=== PATIENT | male | born 1965 | race Caucasian/White ===

== ENCOUNTER 2022-05-13 08:09 | Outpatient (CLI) | payer OTHER, SELFPAY ==
--- NOTE | ~2022-05-13 | XR_ITS ---
XR abdomen/kub 1V 05/13/2022 08:56 INDICATION: Abdominal distention. TECHNIQUE: KUB COMPARISON: 06/28/2017 FINDINGS: Bowel gas pattern is normal. There is no evidence of free air, mass, organomegaly, ascites or obstruction. No abnormal calculi are seen. The bones appear intact. IMPRESSION: 1: No acute abdominal abnormality identified. Reviewed, dictated and finalized at location L. [facility] BARREL DRUM
--- NOTE | ~2022-05-13 | NM_ITS ---
EXAM: NM gastric emptying study DATE: 05/13/2022 12:55 WEIGHTER INDICATION: Abdominal distention. Bloating. TECHNIQUE: A gastric emptying study was performed using the methodology of Radha BATES, et al. J Nucl Med 2007; 48:568-572. The patient was given a meal consisting of 2 scrambled eggs labeled with 0.981 mCi Tc-99m sulfur colloid, 2 slices of toast, two packages of jam, and approximately 120 mL of water . Simultaneous anterior and posterior 1-min images of the abdomen were obtained with the patient supi ne at multiple time points over a total period of 4 hours. The geometric mean of anterior and posteri or views was determined, and the percentage retention was calculated for each time point. COMPARISON: KUB dated 05/13/2022 FINDINGS: Gastric retention of the radiotracer-labeled meal was 65%, 36%, and 4% at the 1-hour, 2-ho ur, and 4-hour time points, respectively. With this technique, apparent rapid gastric emptying is sug gested by <30% gastric retention at 1 hour. Delayed gastric emptying is defined by gastric retention of >90% at 1 hour, >60% retention at 2 hours, or >10% retention at 4 hours. IMPRESSION: 1. Normal gastric emptying. Reviewed, dictated and finalized at location L. HTER IMPRESSION: 1. Normal gastric emptying.
== END 2022-05-13 08:10 | disposition home or self-care (01) ==
PROVIDERS: PCP Family Medicine Adolescent Medicine; Visit Provider Nurse Practitioner Family
DX: R14.0 Abdominal distension (gaseous) (principal)
CPT/HCPCS: 74018; 78264; A9541

== ENCOUNTER 2022-06-02 00:38 | Day surgery (SDC) | payer OTHER, SELFPAY ==
[2022-05-24 10:01] VITALS: BMI 27.9
--- NOTE | 2022-06-01 16:31 | PM.HPGS ---
History of Present Illness History of Present Illness Consent: Risks, benefits, and alternatives have been discussed and questions answered. Patient agrees to proceed with procedure. Chief complaint: hx colon polyps, bowles's esophagus, neoplasm Narrative: Seven Mandujano is a 56 year old male with a history of Bowles's esophagus and also history of polyps. He had an adenomatous polyp removed 5 years ago. Also at that time biopsies actually were negative for Bowles's mucosa. He does however continue to have acid reflux symptoms treated with omeprazole. He has also had a great deal of abdominal bloating. He took Xifaxan once which helped significantly. He finds it difficult to burp or pass gas. Review of Systems Review of Systems: All systems reviewed & are unremarkable except as noted in HPI and below PMFSH Past Medical History Medical History Alopecia Anxiety GERD (gastroesophageal reflux disease) Patient of Dr. Polanco. Upper endoscopy in August 2017 was relatively unremarkable, with by episode showing mild gastritis without intestinal metaplasia. History of Bowles's esophagus No evidence of Bowles on endoscopy in August 2017. History of colon polyps Colonoscopy in August [address] Polanco demonstrated a sigmoid polyp, found to be tubular adenoma. Hypertension Family History Family History Mother Heart disease, Onset Age: 70 Other Acute myocardial infarction Social History Social History Social History: The patient lives in [place]. His primary care provider is Dr. Yoshi Dawson. He designates his father, Ihsan Mandujano, as his surrogate decision maker and he wishes to be a full code. Smoking packs per day: 0.5 Smoking cigarettes per day: 10.0 Years smoked: 35 Smoking pack-years: 17.50 Smoking status: Current every day smoker Tobacco type: cigarettes Second hand tobacco smoke exposure: Yes Additional smoking assessment comments: Used to smoke 2 packs per day. Has smoked for 34 years. Alcohol intake: current Alcohol use details: socially Substance use: never Substance use type: does not use Living arrangements: alone Occupation/Education: occupation Gender identity (if verbalized by the patient): Male Spiritual care concerns: No Agree to blood products: Yes Meds Home Medications and Allergies Home Medications Medication Instructions Recorded Confirmed Type omeprazole 40 mg capsule,delayed See Rx Instructions .Route 09/30/21 05/24/22 Rx release .COMPLEX #90 caps metoprolol tartrate 50 mg tablet 50 mg PO BID #180 tabs 04/15/22 05/24/22 Rx buspirone 7.5 mg tablet See Rx Instructions .Route 04/20/22 05/24/22 Rx .COMPLEX #180 tabs Allergies Allergy/AdvReac Type Severity Reaction Status Date / Time No Known Allergies Allergy Verified 06/02/22 09:01 Exam Const: General: alert Orientation/consciousness: patient oriented x3 Resp: Auscultation: clear to auscultation bilaterally Cardio: Rhythm: regular rhythm GI: GI Palp: Yes Soft to palpation and No Tenderness to palpation present (GI) Neuro: General: patient oriented x3 Assessment and Plan Assessment and plan (1) Bowles's esophagus: Code(s): K22.70 - Bowles's esophagus without dysplasia Status: Acute Assessment and Plan: EGD with possible biopsy or dilatation or cautery. (2) Colon cancer screening: Code(s): Z12.11 - Encounter for screening for malignant neoplasm of colon Status: Acute Assessment and Plan: Colonoscopy with possible biopsy or polypectomy or cautery or injection of substances.
[2022-06-02 09:03] VITALS: BP 130/75; PULSE 57; RESP 18; TEMP 36.1; O2SAT 99; BMI 27.6
[2022-06-02] MEDS: LACTATED RINGERS 1,000 ML 150 ML IV CONT (09:05)
--- NOTE | 2022-06-02 09:33 | WPDANESEPPF ---
Anes - Initial Pre Proc Eval Procedure: Operation Date: 06/02/22 10:00 Proposed Procedures p Esophagogastroduodenoscopy & Screening Colonoscopy - Mauricio Polanco MD Date/Time: 06/02/22 09:33 Surgeon: Mauricio Polanco MD Pre Op Diagnosis: hx colon polyps, bowles's esophagus, neoplasm Patient Data Age: 56 Gender: M Height: 1.8 m Weight: 89.8 kg Last Vital Signs Temp 97.0 F L 06/02/22 09:03 Pulse 57 L 06/02/22 09:03 Resp 18 06/02/22 09:03 BP 130/75 06/02/22 09:03 Pulse Ox 99 06/02/22 09:03 O2 Del Method Room Air 06/02/22 09:03 Allergies Allergy/AdvReac Type Severity Reaction Status Date / Time No Known Allergies Allergy Verified 06/02/22 09:01 Home Medications Medication Instructions Recorded Confirmed Type omeprazole 40 mg capsule,delayed See Rx Instructions .Route 09/30/21 05/24/22 Rx release .COMPLEX #90 caps metoprolol tartrate 50 mg tablet 50 mg PO BID #180 tabs 04/15/22 05/24/22 Rx buspirone 7.5 mg tablet See Rx Instructions .Route 04/20/22 05/24/22 Rx .COMPLEX #180 tabs Patient hx anesthesia problems: none Family hx anesthesia problems: none Results Review: All pre-operative results and documents have been reviewed as part of the pre-operative evaluation. [facility] Past Medical History Medical History Alopecia Anxiety GERD (gastroesophageal reflux disease) Patient of Dr. Polanco. Upper endoscopy in August 2017 was relatively unremarkable, with by episode showing mild gastritis without intestinal metaplasia. History of Bowles's esophagus No evidence of Bowles on endoscopy in August 2017. History of colon polyps Colonoscopy in [place] [address] Polanco demonstrated a sigmoid polyp, found to be tubular adenoma. Hypertension Family History Family History Mother Heart disease, Onset Age: 70 Other Acute myocardial infarction Social History Social History Social History: The patient lives in [place]. His primary care provider is Dr. Yoshi Dawson. He designates his father, Ihsan Mandujano, as his surrogate decision maker and he wishes to be a full code. Smoking packs per day: 0.5 Smoking cigarettes per day: 10.0 Years smoked: 35 Smoking pack-years: 17.50 Smoking status: Current every day smoker Tobacco type: cigarettes Second hand tobacco smoke exposure: Yes Additional smoking assessment comments: Used to smoke 2 packs per day. Has smoked for 34 years. Alcohol intake: current Alcohol use details: socially Substance use: never Substance use type: does not use Living arrangements: alone Occupation/Education: occupation Gender identity (if verbalized by the patient): Male Spiritual care concerns: No Agree to blood products: Yes Anes - Eval Final PreProcedure Day of Procedure 06/02/22 09:33 Patient weight: normal Heart: regular rate and rhythm Lungs: clear to auscultation Airway: Mallampati scale class II Neurological: alert and oriented Last oral intake: >/= 8 hours ASA classification: III Emergent: no Anesthetic plan: proceed Anesthesia type and monitoring: general GIVS and standard monitoring Results Review: All pre-operative results and documents have been reviewed as part of the pre-operative evaluation. Informed Consent: The patient's anesthetic plan and its attendant risks and benefits were discussed with the patient/family/POA. Questions were solicited and answers provided to the satisfaction of the patient/family/POA.
--- NOTE | 2022-06-02 10:11 | SUR.OPER ---
EGD ended at 1005. Colonoscopy started at 1012.
[2022-06-02] MEDS: SIMETHICONE ORAL SUSPENSION 20 MG/0.3 ML 30 ML BOTTLE 0.6 ML IRRIGATION (10:17)
[2022-06-02 10:34] VITALS: BP 110/69; PULSE 68; RESP 15; O2SAT 98
[2022-06-02 10:44] VITALS: BP 114/76; PULSE 76; RESP 17; O2SAT 99
[2022-06-02 10:54] VITALS: BP 114/79; PULSE 69; RESP 18; O2SAT 100
== END 2022-06-02 11:00 | disposition home or self-care (01) ==
PROVIDERS: PCP Family Medicine Adolescent Medicine; Visit Provider Internal Medicine Gastroenterology
PROC: 0DJ08ZZ Inspection of Upper Intestinal Tract, Via Natural or Artificial Opening Endoscopic (ICD-10-PCS; CPT 43235; principal; 2022-06-02 10:00)
DX: Z12.11 Encounter for screening for malignant neoplasm of colon (principal); K64.8 Other hemorrhoids; K21.9 Gastro-esophageal reflux disease without esophagitis; K29.80 Duodenitis without bleeding; I10 Essential (primary) hypertension; F41.9 Anxiety disorder, unspecified; Z87.19 Personal history of other diseases of the digestive system; Z86.010 Personal history of colon polyps; F17.210 Nicotine dependence, cigarettes, uncomplicated
CPT/HCPCS: 45378; 43239; 87081; J2704; J7120